=== PATIENT | female | born 1970 | race Two or more races ===

== ENCOUNTER 2018-04-14 09:38 | Emergency (ER) | payer MEDICAID ==
[~2018-04-14] VITALS: Ht 152.4 cm; Wt 62.1 kg
[2018-04-14 09:55] VITALS: BP 120/70
== END 2018-04-14 11:06 | disposition home or self-care (01) ==
LOC: ER 09:38
DX: N39.0 Urinary tract infection, site not specified (principal); J45.909 Unspecified asthma, uncomplicated
CPT/HCPCS: 81002

== ENCOUNTER 2019-01-03 23:09 | Emergency (ER) | payer MEDICAID ==
[~2019-01-03] VITALS: Ht 152.4 cm; Wt 62.1 kg
[2019-01-04 02:15] VITALS: BP 134/86
[2019-01-04] MEDS ORDERED: TRIAMCINOLONE 40MG/ML 1ML VIAL IX ONE (02:45)
[2019-01-04] MEDS ORDERED: HYDROcodone-ACET 10/325MG TAB PO ONE (03:15)
== END 2019-01-04 02:49 | disposition home or self-care (01) ==
LOC: ER 23:09
DX: M25.561 Pain in right knee (principal); J45.909 Unspecified asthma, uncomplicated
CPT/HCPCS: 73562; 96372; 99283; J3301